=== PATIENT | female | born 1965 | race Caucasian/White ===

== ENCOUNTER 2016-09-03 20:34 | Emergency (ER) | payer OTHER ==
[~2016-09-03] VITALS: Ht 160 cm; Wt 79.5 kg
[2016-09-03 21:44] VITALS: BP 183/96; RESP 16; O2SAT 100
[2016-09-03 21:50] LABS: Mean Corpuscular Hemoglobin 27.8 pg (27.0-35.0); Mean Corpuscular Volume 84.6 fL (81-100)
[2016-09-03 22:08] LABS: INR 0.94 ratio
--- NOTE | 2016-09-03 22:57 | ED.REPORT ---
HPI-General Illness Date of Service Sep 03, 2016 ED Provider: Dr. Watts A 51 year old female presents to the ED from in bilateral nose [place] [place] complaining of epistaxis onset last night. Last night, epistaxis was very hard to stop. Today, she sneezed at work, began to have epistaxis that was hard to stop. Earlier this evening she reports experiencing another episode of epistaxis and a large blood clot that ran down her throat. Epistaxis would not stop. At , the patient had packing in place at 1930 without blowing her nose beforehand. She was not given any antibiotics. Nursing Notes Stated Complaint: NOSE BLEED-REF BY CLINIC Chief Complaint: ENT & Mouth Nursing Notes Reviewed: Yes Allergies: Coded Allergies: No Known Allergies (Unverified , 09/03/16) General Time Seen by MD: 22:57 Chief Complaint Other (Epistaxis) Hx Obtained From: Patient Sudden in Onset?: No Onset Occurred: Yesterday Symptom Duration: Intermittent Severity: Current: No pain currently Severity: Maximum: No pain Recent Healthcare: Recent doctor visit (Came from ) Similar Sx Previous: No Past Medical History Past Medical History Hx of nose bleeds, never been this bad before. Has never seen ENT for this. Not on any blood thinners. Denies Hx of [place]. Denies: Hypertension Social History She works as Triage Counselor. Other Social History: Good social support Ambulatory Status Independent Review of Systems Full Review of Systems Constitutional: Denies: Chills, Fever Ears / Nose / Throat: Reports: Nose bleeding Respiratory: Denies: Non-productive cough Cardiovascular: Denies: Chest pain GI: Denies: Abdominal pain Complete sys rev & neg: except as marked. Physical Exam Vital Signs Vital Signs Date Time Temp Pulse Resp B/P Pulse Ox O2 Delivery O2 Flow Rate FiO2 09/04/16 00:26 71 18 156/89 100 Room Air 09/03/16 21:44 36.9 74 16 183/96 100 Room Air Initial VS: Reviewed General/Constitutional: Awake, Alert No active bleeding. Bilateral nose packing. Patient is not anemic. Head / Eyes: Atraumatic, Normocephalic, PERRL, EOMI ENT: Atraumatic, Airway patent Respiratory / Chest: Atraumatic, Breath sounds NL, Breath sounds = bilat, No respiratory distress Cardiovascular: Heart rate NL, Regular rhythm, Heart sounds NL, No gallop, No murmurs, No rubs Abdomen: No guarding, No rebound Upper Extremities Upper Extremity / MS: No swelling, No edema Skin: Atraumatic, Color NL, Warm Neurologic: Oriented X3, Speech NL Interpretation & Diagnostics Lab Results Interpretation Result Diagram: 09/03/16213909/03/162139 Test 09/03/16 21:40 White Blood Count 9.6th/mm3 (3.8-10.1) Red Blood Count 4.79mil/mm3 (3.90-5.20) Hemoglobin 13.3g/dL (12.0-15.6) Hematocrit 40.5% (35.0-46.0) Mean Corpuscular Volume 84.6fL (81-100) Mean Corpuscular Hemoglobin 27.8pg (27.0-35.0) Mean Corpuscular Hemoglobin Concent 32.8% (32.0-37.0) Red Cell Distribution Width 13.2% (12.3-15.4) Platelet Count 278bil/L (150-400) Prothrombin Time 10.0sec (8.1-12.5) Prothromb Time International Ratio 0.94ratio Sodium Level 138mEq/L (134-144) Potassium Level 4.1mEq/L (3.5-5.2) Chloride Level 101mEq/L (97-108) Carbon Dioxide Level 25mmol/L (18-29) Blood Urea Nitrogen 16mg/dL (6-24) Creatinine 0.79mg/dL (0.57-1.00) Estimat Glomerular Filtration Rate 109mL/min (>59) Glucose Level 109mg/dL (60-99) Calcium Level 9.9mg/dL (8.5-10.1) Total Bilirubin 0.2mg/dL (0.0-1.2) Aspartate Amino Transf (AST/SGOT) 12U/L (0-50) Alanine Aminotransferase (ALT/SGPT) 11U/L (0-32) Alkaline Phosphatase 68U/L (25-150) Total Protein 8.0g/dL (6.4-8.4) Albumin 4.4g/dL (3.4-5.0) Hold Spivey Top Tube Received (Received) Re-Eval/Medical Decision Med Decision/Clinical Course The bleeding has stopped. The labs look good. Her vitals are stable. Ear nose and throat referral will be given. Course of antibiotic to the packing is in placed. Time of Eval: 23:03 Re-Evaluation/Progress Note: Explained plan for discharge and plan for patient to make an appointment with Dr. Bari Trinh, ENT. Patient understands and agrees with the plan. All questions addresssed. Counseled Regarding: Diagnosis, Lab results, Need for follow-up, When/why to return to ED Discharge & Departure Primary Impression: Epistaxis Disposition: Home Discharge Condition All VS Reviewed: Yes Condition: Stable Patient Instructions: Epistaxis (ED) Additional Instructions: Keep the packings in until you are seen by the ear nose and throat surgeon. Call Dr. Trinh's office tomorrow morning and tell the office that you were seen in the emergency department and have packings in both nostrils. Take Keflex twice daily while the packings are in place. Take Tylenol as directed for pain. Read the aftercare instructions given. Return if any problem or any worsening symptoms. Return if you have any further bleeding. Referrals: Ramila Chua MD (PCP) Bari Trinh MD Attestation Portions of this note were transcribed by Ga Yoon. I, Dr. Watts personally performed the history, physical exam and medical decision-making; I reviewed and confirmed the accuracy of the information in the transcribed note. Signed by: Stephen Freed, 09/04/2016, 0045. copies to: Bari Trinh MD; Ramila Chua MD, Todd P DO Sep 03, 2016 22:57 Ga Yoon Sep 03, 2016 23:05
[2016-09-04 00:26] VITALS: BP 156/89; PULSE 71; RESP 18; O2SAT 100
== END 2016-09-04 00:27 | disposition home or self-care (01) ==
LOC: SED 20:34
DX: R04.0 Epistaxis (principal)